=== PATIENT | female | born 1985 | race African-American/Black ===

== ENCOUNTER 2021-04-14 11:56 | Inpatient (IN) | payer OTHER, MEDICAID ==
[~2021-04-14] VITALS: Ht 167.6 cm; Wt 86.5 kg
[2021-04-14] MEDS ORDERED: IV NORMAL SALINE 1000ML BAG 1,000 ML IV ONE (12:15)
[2021-04-14 12:43] LABS: BASO # 0.1 x10^3/uL (0.0-0.2); BASO % 1 % (0-3); EOS # 0.1 x10^3/uL (0.0-0.7); EOS % 1 % (0-3); HEMATOCRIT 46.6 % (36.0-47.0); LYMPH # 1.9 x10^3/uL (1.0-4.8); LYMPH % 19 % (24-48); MEAN CORPUSCULAR HEMOGLOBIN 31 pg (25-35); MEAN CORPUSCULAR HGB CONC 34 g/dL (31-37); MEAN CORPUSCULAR VOLUME 91 fL (79-100); MONO # 0.5 x10^3/uL (0.0-1.1); MONO % 6 % (0-9); NEUT # 7.3 x10^3/uL (1.8-7.7); NEUT % 73 % (31-73); PLATELET COUNT 411 x10^3/uL (140-400); RED BLOOD COUNT 5.13 x10^6/uL (3.50-5.40); RED CELL DISTRIBUTION WIDTH 13.7 % (11.5-14.5); WHITE BLOOD COUNT 9.9 x10^3/uL (4.0-11.0)
[2021-04-14 12:46] LABS: CALCIUM 9.7 mg/dL (8.5-10.1); CREATININE 0.9 mg/dL (0.6-1.0); GFR 87.3; POTASSIUM 4.4 mmol/L (3.5-5.1)
[2021-04-14 12:52] LABS: ALBUMIN 4.6 g/dL (3.4-5.0); ALBUMIN/GLOBULIN RATIO 1.2 (1.0-1.7); MAGNESIUM 2.1 mg/dL (1.8-2.4); TOTAL BILIRUBIN 0.4 mg/dL (0.2-1.0); TOTAL PROTEIN 8.6 g/dL (6.4-8.2)
--- NOTE | 2021-04-14 13:07 | PHYS DOC ---
Past Medical History Past Medical History: Anxiety Past Surgical History: No Surgical History Smoking Status: Never Smoker Alcohol Use: Occasionally Drug Use: None General Adult EDM: Chief Complaint: Palpitations HPI: HPI: Patient is a 35 year old female presenting with palpitations. Patient was at home this morning when she started to feel lightheaded and dizzy and felt like her chest was "jumping". Her mom checked her blood pressure which was normal. She describes chest tightness in the middle and some pain in her right shoulder. Denies SOB. Denies headache. She reports some nausea and vomiting x 2 this morning, which she says is due to drinking alcohol last night, but currently does not feel nauseated. Denies known exposure to COVID-19. Denies fever or chills. Denies . Review of Systems: Review of Systems: Constitutional: Denies fever or chills Eyes: Denies redness or eye pain HENT: Denies nasal congestion or sore throat Respiratory: Denies cough or shortness of breath Cardiovascular: Reports chest pressure and palpitations GI: Denies abdominal pain. Reports nausea and vomiting x 2 : Denies dysuria or hematuria Musculoskeletal: Denies back pain or joint pain Integument: Denies rash or skin lesions Neurologic: Denies headache, focal weakness or sensory changes Complete systems were reviewed and found to be within normal limits, except as documented in this note. Heart Score: C/O Chest Pain: Yes HEART Score for Chest Pain: HEART Score for Chest Pain Response (Comments) Value History Slighlty/Non-Suspicious 0 ECG Nonspecific Repolarizatio (A Fib with RVR) 1 Age < 45 0 Risk Factors No Risk Factors 0 Troponin < Normal Limit 0 Total 1 Risk Factors: Risk Factors: DM, Current or recent (<one month) smoker, HTN, HLP, family history of CAD, obesity. Risk Scores: Score 0 - 3: 2.5% MACE over next 6 weeks - Discharge Home Score 4 - 6: 20.3% MACE over next 6 weeks - Admit for Clinical Observation Score 7 - 10: 72.7% MACE over next 6 weeks - Early Invasive Strategies Current Medications: Current Medications Medications (Trade) Dose Ordered Sig/Gorge Start Time Stop Time Status Last Admin Dose Admin Sodium Chloride 1,000 ml @ 1,000 mls/hr 1X ONCE 04/14/21 12:15 04/14/21 13:14 Allergies: Allergies: Allergies Coded Allergies Type Severity Reaction Last Updated Verified No Known Drug Allergies 04/14/21 No Physical Exam: PE: Constitutional: Well developed, no acute distress, non-toxic appearance HENT: Normocephalic, atraumatic Eyes: EOMI, conjunctiva normal, no discharge Neck: Normal range of motion, no tenderness, supple Lungs & Thorax: No respiratory distress, equal chest rise and fall. Lungs clear to auscultation bilaterally Cardiovascular: Tachycardic, no murmurs, rubs or gallops. Radial pulses +2 bilaterally. Abdomen: Soft, no tenderness Skin: Warm, dry, no erythema, no rash Extremities: No tenderness, ROM intact, no edema Neurologic: Alert and oriented X 3, normal motor function, normal sensory function, no focal deficits noted Psychologic: Affect normal, judgment normal EKG: EKG: Obtained at 1208 A Fib with RVR at 150 bpm. Artifact in V2. No ST elevation. QRS 68 ms QT 214 ms QTc 340 ms Obtained at 1323 A Fib with RVR at [address] elevation. QRS 92 ms QT 314 ms QTc 491 ms Radiology/Procedures: Radiology/Procedures: [] Course & Med Decision Making: Course & Med Decision Making Patient is a 35 year old female presenting to the ED with palpitations. Patient felt lightheaded and dizzy this morning. She describes chest tightness, palpitations and some pain in her right shoulder. Denies SOB. Denies headache. Patient doesn't recall having a similar episode before. ECG at 1208 showed A Fib with RVR at 150 bpm. Troponin I was negative. Patient was given option of being admitted to cardiology for observation and possible cardioversion tomorrow or performing synchronized cardioversion in the ED. Patient elected to do synchronized cardioversion in the ED. Before consent was obtained, patient's rhythm went into V Tach up to 250s. She converted back to A Fib with RVR after about 10-15 seconds without intervention. Repeat ECG at 1323 showed A Fib with RVR at [address] Stewart in cardiology consulted. Per his recommendation, medical treatment initiated with Cardiazem and Heparin, with plan to possibly perform cardiover cynthia tomorrow. Patient stable for admission to the hospital for further treatment and evaluation with Dr. Meraz, who is covering for group with Dr. De La Garza (PCP). Discussed findings and plan with patient and family, who acknowledge understanding and agreement. Ailyn Disclaimer: Dragon Disclaimer: This electronic medical record was generated, in whole or in part, using a voice recognition dictation system. Departure Departure Impression: Primary Impression: Atrial fibrillation with rapid ventricular response Additional Impression: V-tach Disposition: 09 ADMITTED INPATIENT Admitting Physician: Milo Meraz Condition: GUARDED Referrals: ABIGAIL LOPEZ MD (PCP) Critical Care Time Critical care time was 30 minutes which includes time at bedside, spent in discussion of patient's care with specialists and/or family members, with interpretation of laboratory and/or radiological studies and is exclusive of procedures. ALYSHA ZHAO DO Apr 14, 2021 13:07
[2021-04-14] MEDS ORDERED: fentaNYL PF VIAL 100 MCG/2 ML VIAL IVP ONE (13:15)
[2021-04-14 13:16] LABS: BILIRUBIN,URINE NEGATIVE (NEG); CLARITY,URINE CLEAR; COLOR,URINE YELLOW; NITRITE,URINE NEGATIVE (NEG); PH,URINE 7.5 (<5.0-8.0); PROTEIN,URINE 100 mg/dL (NEG-TRACE); UROBILINOGEN,URINE 0.2 mg/dL (0.2 mg/dL)
[2021-04-14] MEDS ORDERED: HEPARIN for IV BOLUS 10,000 UNIT/10 ML VIAL. IV ONE (13:30)
[2021-04-14] MEDS ORDERED: HEPARIN for IV BOLUS 10,000 UNIT/10 ML VIAL. IV PRN (13:30)
[2021-04-14] MEDS ORDERED: HEPARIN 25,000UTS/250ML PREMIX 250 ML IV PRN (13:30)
[2021-04-14 14:03] LABS: AMORPHOUS SEDIMENT,UR PRESENT /HPF; BACTERIA,URINE FEW /HPF (0-FEW); RBC,URINE OCC /HPF (0-2); WBC,URINE OCC /HPF (0-4)
[2021-04-14] MEDS ORDERED: ONDANSETRON PF 4 MG/2 ML VIAL. IV PRN (14:30)
[2021-04-14 14:39] LABS: PROTHROMBIN TIME PATIENT 13.2 SEC (11.7-14.0)
[2021-04-14 14:45] LABS: FREE T4 1.13 ng/dL (0.76-1.46)
[2021-04-14 16:05] LABS: BARBITURATES NEG (NEG); BENZODIAZEPINES NEG (NEG); CANNABINOIDS NEG (NEG); COCAINE NEG (NEG); METHADONE NEG (NEG); OPIATES NEG (NEG); PHENCYCLIDINE NEG (NEG)
[2021-04-14 16:09] LABS: AMPHETAMINE/METHAMPHETAMINE NEG (NEG)
[2021-04-14 19:20] VITALS: BP 134/78
[2021-04-14 20:26] VITALS: BP 128/78
[2021-04-14 21:26] VITALS: BP 124/78
--- NOTE | 2021-04-14 22:11 | EKG ---
[facility] [address] [place] [address] Test Date: 2021-04-14 Test Time: 13:23:10 Pat Name: TASHA DOMINGUEZ Department: Room: Gender: F Care Center Manager: : 1985 Requested By: ALYSHA ZHAO Order Number: [id number] Reading MD: Measurements Intervals [place] Rate: 143 P: UT: QRS: 68 QRSD: 92 T: -94 QT: 314 QTc: 491 Interpretive Statements IRREGULAR RHYTHM, NO P-WAVE FOUND ST & T ABNORMALITY, CONSIDER INFERIOR ISCHEMIA OR LEFT VENTRICULAR STRAIN ABNORMAL ECG RI6.01 No previous ECG available for comparison
--- NOTE | 2021-04-14 22:20 | EKG ---
[facility] [address] [place] [address] Test Date: 2021-04-14 Test Time: 12:08:31 Pat Name: TASHA DOMINGUEZ Department: Room: Gender: F Babbitter: : 1985 Requested By: ALYSHA ZHAO Order Number: [id number] Reading MD: Measurements Intervals [place] Rate: 150 P: 90 OR: 86 QRS: 60 QRSD: 68 T: -56 QT: 214 QTc: 340 Interpretive Statements SINUS TACHYCARDIA ATRIAL PREMATURE COMPLEX(ES) ST & T ABNORMALITY, CONSIDER INFERIOR ISCHEMIA OR LEFT VENTRICULAR STRAIN T ABNORMALITY IN ANTEROLATERAL LEADS ABNORMAL ECG RI6.02 No previous ECG available for comparison
[2021-04-14 22:44] VITALS: BP 96/72
[2021-04-14 23:15] VITALS: BP 96/72
[2021-04-14] MEDS ORDERED: FLUO20CA20 PO (23:26)
[2021-04-14] MEDS ORDERED: TEMAZEPAM 15 MG CAPSULE PO PRN (23:30)
[2021-04-14 23:44] VITALS: BP 104/73
[2021-04-14] MEDS: ACETAMINOPHEN 325 MG TABLET. PO PRN (23:48)
[2021-04-15] VITALS (9 sets, daily range): BP systolic 91–131; BP diastolic 56–78
[2021-04-15 05:22] LABS: HEMATOCRIT 42.8 % (36.0-47.0); HEMOGLOBIN 14.4 g/dL (12.0-15.5); RED BLOOD COUNT 4.7 x10^6/uL (3.50-5.40); RED CELL DISTRIBUTION WIDTH 13.6 % (11.5-14.5); WHITE BLOOD COUNT 9.7 x10^3/uL (4.0-11.0)
[2021-04-15] MEDS: ACETAMINOPHEN 325 MG TABLET. PO PRN (07:48)
--- NOTE | 2021-04-15 08:08 | PDOC ---
Provider Note Date of Service: DATE: 04/15/21 TIME: 08:07 Provider Note dictated- echo, po dilt, next, follow Justifications for Admission Other Justification YONAS KUMAR MD Apr 15, 2021 08:07
--- NOTE | 2021-04-15 10:47 | PDOC2 ---
RYLEY NAVARRETE GOLF PROFESSIONAL 04/15/21 1047: CARDIAC CONSULT DATE OF CONSULT Date of Consult DATE: 04/15/21 TIME: 10:42 REASON FOR CONSULT Reason for Consult: New onset AFIB with RVR, runs of VTACH REFERRING PHYSICIAN Referring Physician: Dr. Del Valle SOURCE Source: Chart review, Patient HISTORY OF PRESENT ILLNESS HISTORY OF PRESENT ILLNESS This is a 35 yo female who presented secondary to palpitations and dizziness. W as noted in Aflutter with RVR in ED, which prompted this consult. Patient reports she went out for and had a few drinks Thursday night. Woke up not feeling well on Thursday. Thought she was possibly "hung over" although she reports she didn't drink very much the night prior. Went into the kitchen and felt lightheaded/dizzy. Could feel her heart "jumping" in her chest. Went and laid down and symptoms improved. Got up later and symptoms returned so she came to the ED for further evaluation and treatment. Was noted in AFIB with RVR. While in ED, HR went up to 250 and there were concerns for possible VT. Outbound Sales Executive was notified and patient was place on Cardizem and heparin gtts. Patient reports having palpitations, feeling like her heart is racing, previously. Reports these episodes have been very brief and they resolved without intervention. Patient converted back to SR overnight. PAST MEDICAL HISTORY Cardiovascular: No pertinent hx Pulmonary: No pertinent hx GI: No pertinent hx Heme/Onc: No pertinent hx Hepatobiliary: No pertinent hx Psych: Anxiety Endocrine: Hypothyroidism PAST SURGICAL HISTORY Past Surgical History: No pertinent history FAMILY HISTORY Family History: Other (noncontributory to CV ) SOCIAL HISTORY Smoke: No ALCOHOL: occassional Drugs: None Lives: with Family CURRENT MEDICATIONS CURRENT MEDICATIONS Current Medications Medications (Trade) Dose Ordered Sig/Gorge Route PRN Reason Start Time Stop Time Status Last Admin Dose Admin Sodium Chloride 1,000 ml @ 1,000 mls/hr 1X ONCE IV 04/14/21 12:15 04/14/21 13:14 DC 04/14/21 12:32 Diltiazem HCl (Cardizem Iv Push) 20 mg 1X ONCE IVP 04/14/21 13:30 04/14/21 13:31 DC 04/14/21 13:56 Diltiazem HCl 125 mg/Sodium Chloride 125 ml @ 5 mls/hr 1X ONCE IV 04/14/21 13:30 04/15/21 08:10 DC 04/14/21 14:03 Heparin Sodium (Porcine) (Heparin Sodium) 4,000 unit 1X ONCE IV 04/14/21 13:30 04/14/21 13:31 DC 04/14/21 14:30 Heparin Sodium/ Dextrose 250 ml @ 0 mls/hr CONT PRN IV PER PROTOCOL 04/14/21 13:30 04/14/21 14:36 Diltiazem HCl 125 mg/Sodium Chloride 125 ml @ 5 mls/hr CONT PRN IV SEE I/O RECORD 04/14/21 22:00 04/15/21 08:10 DC 04/15/21 02:12 Acetaminophen (Tylenol) 650 mg PRN Q6HRS PRN PO MILD PAIN / TEMP > 100.3'F 04/14/21 23:30 04/15/21 07:48 Temazepam (Restoril) 30 mg PRN QHS PRN PO INSOMNIA 04/14/21 23:30 04/14/21 23:47 Diltiazem HCl (Cardizem 24hr Cd) 180 mg DAILY PO 04/15/21 09:00 04/15/21 10:15 ALLERGIES ALLERGIES: Coded Allergies: No Known Drug Allergies (Unverified , 04/14/21) ROS Review of System 14 point ROS conducted with pertinent positives noted above in hPI PHYSICAL EXAM General: Alert, Oriented X3, Cooperative, No acute distress HEENT: Atraumatic Lungs: Clear to auscultation Heart: Regular rate Abdomen: Soft, No tenderness Extremities: No edema, Normal pulses Skin: No significant lesion Neuro: Normal speech, Sensation intact Psych/Mental Status: Mental status NL, Mood NL MUSCULOSKELETAL: No deformity VITALS/I&O VITALS/I&O: Vital Signs Date Time Temp Pulse Resp B/P (MAP) Pulse Ox O2 Delivery O2 Flow Rate FiO2 04/15/21 10:15 65 100/67 04/15/21 08:00 Room Air 2.0 04/15/21 07:00 97.8 16 98 97.8 I & O 04/14/21 04/14/21 04/15/21 15:00 23:00 07:00 Intake Total 125 ml Output Total 300 ml 300 ml Balance -300 ml -175 ml LABS Lab: Laboratory Tests Test 04/14/21 12:17 04/14/21 12:36 04/14/21 12:48 04/14/21 14:10 White Blood Count 9.9 x10^3/uL (4.0-11.0) Red Blood Count 5.13 x10^6/uL (3.50-5.40) Hemoglobin 16.0 g/dL (12.0-15.5) H Hematocrit 46.6 % (36.0-47.0) Mean Corpuscular Volume 91 fL (79-100) Mean Corpuscular Hemoglobin 31 pg (25-35) Mean Corpuscular Hemoglobin Concent 34 g/dL (31-37) Red Cell Distribution Width 13.7 % (11.5-14.5) Platelet Count 411 x10^3/uL (140-400) H Neutrophils (%) (Auto) 73 % (31-73) Lymphocytes (%) (Auto) 19 % (24-48) L Monocytes (%) (Auto) 6 % (0-9) Eosinophils (%) (Auto) 1 % (0-3) Basophils (%) (Auto) 1 % (0-3) Neutrophils # (Auto) 7.3 x10^3/uL (1.8-7.7) Lymphocytes # (Auto) 1.9 x10^3/uL (1.0-4.8) Monocytes # (Auto) 0.5 x10^3/uL (0.0-1.1) Eosinophils # (Auto) 0.1 x10^3/uL (0.0-0.7) Basophils # (Auto) 0.1 x10^3/uL (0.0-0.2) Sodium Level 141 mmol/L (136-145) Potassium Level 4.4 mmol/L (3.5-5.1) Chloride Level 104 mmol/L (98-107) Carbon Dioxide Level 25 mmol/L (21-32) Anion Gap 12 (6-14) Blood Urea Nitrogen 9 mg/dL (7-20) Creatinine 0.9 mg/dL (0.6-1.0) Estimated GFR (Cockcroft-Gault) 87.3 BUN/Creatinine Ratio 10 (6-20) Glucose Level 110 mg/dL (70-99) H Calcium Level 9.7 mg/dL (8.5-10.1) Magnesium Level 2.1 mg/dL (1.8-2.4) Total Bilirubin 0.4 mg/dL (0.2-1.0) Aspartate Amino Transferase (AST) 28 U/L (15-37) Alanine Aminotransferase (ALT) 37 U/L (14-59) Alkaline Phosphatase 87 U/L (46-116) Creatine Kinase 436 U/L (26-192) H Creatine Kinase MB (Mass) 3.2 ng/mL (0.0-3.6) Creatine Kinase MB Relative Index 0.7 % (0-4) Troponin I Quantitative < 0.017 ng/mL (0.000-0.055) Total Protein 8.6 g/dL (6.4-8.2) H Albumin 4.6 g/dL (3.4-5.0) Albumin/Globulin Ratio 1.2 (1.0-1.7) Thyroid Stimulating Hormone (TSH) 3.894 uIU/mL (0.358-3.74) H Free Thyroxine 1.13 ng/dL (0.76-1.46) Free Triiodothyronine (T3) pg/mL 2.75 pg/mL (2.18-3.98) Urine Collection Type Unknown Urine Color Yellow Urine Clarity Clear Urine pH 7.5 (<5.0-8.0) Urine Specific [place] 1.010 (1.000-1.030) Urine Protein 100 mg/dL (NEG-TRACE) Urine Glucose (UA) Negative mg/dL (NEG) Urine Ketones (Stick) Negative mg/dL (NEG) Urine Blood Trace (NEG) Urine Nitrite Negative (NEG) Urine Bilirubin Negative (NEG) Urine Urobilinogen Dipstick 0.2 mg/dL (0.2 mg/dL) Urine Leukocyte Esterase Negative (NEG) Urine RBC Occ /HPF (0-2) Urine WBC Occ /HPF (0-4) Urine Squamous Epithelial Cells Many /LPF Urine Amorphous Sediment Present /HPF Urine Bacteria Few /HPF (0-FEW) Urine Mucus Slight /LPF Urine Opiates Screen Neg (NEG) Urine Methadone Screen Neg (NEG) Urine Barbiturates Neg (NEG) Urine Phencyclidine Screen Neg (NEG) Urine Amphetamine/Methamphetamine Neg (NEG) Urine Benzodiazepines Screen Neg (NEG) Urine Cocaine Screen Neg (NEG) Urine Cannabinoids Screen Neg (NEG) Urine Ethyl Alcohol Neg (NEG) POC Urine HCG, Qualitative Hcg negative (Negative) Prothrombin Time 13.2 SEC (11.7-14.0) Prothrombin Time INR 1.0 (0.8-1.1) Activated Partial Thromboplast Time 27 SEC (24-38) Test 04/14/21 17:02 04/14/21 20:30 04/15/21 03:55 Troponin I Quantitative 0.203 ng/mL (0.000-0.055) 0.159 ng/mL (0.000-0.055) Heparin Anti-Xa Act, Unfractionated 0.27 IU/mL (0.30-0.70) L 0.38 IU/mL (0.30-0.70) White Blood Count 9.7 x10^3/uL (4.0-11.0) Red Blood Count 4.70 x10^6/uL (3.50-5.40) Hemoglobin 14.4 g/dL (12.0-15.5) Hematocrit 42.8 % (36.0-47.0) Mean Corpuscular Volume 91 fL (79-100) Mean Corpuscular Hemoglobin 31 pg (25-35) Mean Corpuscular Hemoglobin Concent 34 g/dL (31-37) Red Cell Distribution Width 13.6 % (11.5-14.5) Platelet Count 379 x10^3/uL (140-400) Laboratory Tests 04/14/21 12:17 04/15/21 03:55 Laboratory Tests 04/14/21 12:17 ASSESSMENT/PLAN ASSESSMENT/PLAN 1. Palpitations, new onset AFIB/flutter with RVR; converted back to SR on Cardizem gtt. Tele from ED reviewed and shows SVT. NO VT noted 2. Elevated troponin; peak 0.2. Most probably type II, demand ischemia secondary to above. On heparin gtt 3. Hypothyroidism; TSH 3.8. Recommendations Will convert Cardizem to metoprolol for rate control as BP low end Titrate off Cardizem gtt Discontinue heparin gtt Start low-dose ASA therapy Echo to assess LV systolic function Plan outpatient event monitor and EP referral Will monitor overnight and plan for discharge tomorrow. RONNIE POTTS MD 04/15/211927: CARDIAC CONSULT ASSESSMENT/PLAN ASSESSMENT/PLAN The patient was seen and interviewed as well as examined at the bedside. The chart was reviewed. The case was discussed. Agree with the plan of care. RYLEY NAVARRETE APRN Apr 15, 2021 10:47 RONNIE POTTS MD Apr 15, 2021 19:28
--- NOTE | 2021-04-15 10:57 | HP ---
ADMIT DATE: 04/14/2021 CHIEF COMPLAINT: Rapid heartbeat. HISTORY OF PRESENT ILLNESS: A 35-year-old black female a normal healthy, takes no meds, came in with having fairly sudden onset of rapid heartbeat, shortness of breath and dizziness. She had no recent chest pain or other complaints. She was in atrial fibrillation with rapid ventricular response in the ER and required IV diltiazem for control. She is converted to sinus rhythm after about 6 hours on IV diltiazem and feels better now. She has never had previous cardiovascular evaluation. PAST MEDICAL HISTORY: No p.o. meds. No prior surgeries. Medical history per obtained note. No drug allergies. She has had one child. SOCIAL HISTORY: Nonsmoker, nondrinker. Single. We did not discuss ____. FAMILY HISTORY: Unremarkable. REVIEW OF SYSTEMS: No other specific complaints. She has an IUD in for control. OBJECTIVE: ____ NECK: No masses, nodes or bruits. LUNGS: Clear, without tachypnea. CARDIOVASCULAR: Regular rate. No irregular beat or murmur is heard, no rubs are heard. ABDOMEN: Soft, benign and nontender. EXTREMITIES: Good pedal and radial pulses. No joint or skin lesions or edema. NEUROLOGIC: Physiologic. No tremor. No focal findings. Mental status intact. ASSESSMENT: New onset of atrial fibrillation with rapid ventricular response, which appears to be idiopathic at this point. No evidence of thyroid disease, valvular disease, substance abuse, chronic obstructive pulmonary disease or other known causes. PLAN: We will check a D-dimer, which I do not believe has been done yet to assess for occult pulmonary embolism, echocardiogram and switch to p.o. diltiazem. Cardiovascular consult is pending as well for further evaluation. ALEKS/CHATO/IBRAHIMA DR: Hank TID: [id number]
--- NOTE | 2021-04-15 12:53 | NUR ---
SS following for discharge planning. SS reviewed pt chart and discussed with pt RN. Pt is from home and is currently on room air. Pt converted overnight. Cardiology following. Probable discharge to home tomorrow with outpatient automotive repair technician. SS will continue to follow for discharge planning.
--- NOTE | 2021-04-15 17:44 | CARD ---
MR#: [id number] Date of Study: 04/15/2021 Ordering Physician: YONAS KUMAR, Referring Physician: YONAS KUMAR, Tech: Rachelle Griffithsimmanueldmitriy [facility] APPROVED REPORT EXAM: Two-dimensional and M-mode echocardiogram with Doppler and color Doppler. Other Information Quality : GoodHR: 65bpm INDICATION Atrial Fibrillation RISK FACTORS Hypertension 2D DIMENSIONS RVDd3.3 (2.9-3.5cm)Left Atrium(2D)3.1 (1.6-4.0cm) IVSd1.0 (0.7-1.1cm)Aortic Root(2D)2.7 (2.0-3.7cm) LVDd4.5 (3.9-5.9cm)LVOT Diameter2.0 (1.8-2.4cm) PWd0.9 (0.7-1.1cm)LVDs2.9 (2.5-4.0cm) FS (%) 34.9 %SV58.5 ml LVEF(%)60.3 (>50%) Aortic Valve AoV Peak Isra.108.3cm/sAoV VTI28.4cm AO Peak GR.4.7mmHgLVOT VTI 16.61cm AO Mean GR.4mmHg Mitral Valve MV E Taejvxkk27.4cm/sMV DECEL GYLS381oh MV A Rrxruuju98.0cm/sE/A Ratio2.0 TDI Lateral E' P. V12.10cm/sMedial E' P. V8.88cm/s E/Lateral E'7.0E/Medial E'9.5 Tricuspid Valve TR P. Iwzmivph802vf/sRAP HVABQLHO0yoMn TR Peak Gr.56ktAuSRPI83uqTh Pulmonary Vein S1 Wqadkylk93.8cm/sS2 Txdwmsej49.47cm/s D2 Gjzmfmyq56.5cm/s LEFT VENTRICLE The left ventricle is normal size. There is normal left ventricular wall thickness. The left ventricu lar systolic function is normal and the ejection fraction is within normal range. The Ejection Fracti on is 50-55%. There is normal LV segmental wall motion. The left ventricular diastolic function and f illing is normal for age. RIGHT VENTRICLE The right ventricle is normal size. There is normal right ventricular wall thickness. The right ventr icular systolic function is normal. ATRIA The left atrium size is normal. The right atrium size is normal. The interatrial septum is intact wit h no evidence for an atrial septal defect or patent foramen ovale as noted on 2-D or Doppler imaging. AORTIC VALVE The aortic valve is normal in structure and function. Doppler and Color Flow revealed trace aortic re gurgitation. There is no significant aortic valvular stenosis. Calculated aortic valve maximum pressu re gradient of 8 mmHg and mean pressure gradient of 4 mmHg. MITRAL VALVE The mitral valve is normal in structure and function. There is no evidence of mitral valve prolapse. There is no mitral valve stenosis. Doppler and Color-flow revealed trace mitral regurgitation. TRICUSPID VALVE The tricuspid valve is normal in structure and function. Doppler and Color Flow revealed trace tricus pid regurgitation with an estimated PAP of 25 mmHg. There is no tricuspid valve stenosis. PULMONIC VALVE The pulmonic valve is not well visualized. Doppler and Color Flow revealed trace pulmonic valvular re gurgitation. GREAT VESSELS The aortic root is normal in size. The ascending aorta is normal in size. The IVC is normal in size a nd collapses >50% with inspiration. PERICARDIAL EFFUSION There is no evidence of significant pericardial effusion. Critical Notification Critical Value: No <Conclusion> The left ventricle is normal size. The left ventricular systolic function is normal and the ejection fraction is within normal range. The Ejection Fraction is 50-55%. There is normal LV segmental wall motion. Doppler and Color Flow revealed trace aortic regurgitation. There is no significant aortic valvular stenosis. Calculated aortic valve maximum pressure gradient of 8 mmHg and mean pressure gradient of 4 mmHg. Doppler and Color-flow revealed trace mitral regurgitation. Doppler and Color Flow revealed trace tricuspid regurgitation with an estimated PAP of 25 mmHg. Signed by : Leopoldo Marquez MD Electronically Approved : 04/15/2021 17:43:31
[2021-04-15] MEDS: ASPIRIN ENTERIC COATED 81 MG TABLET.DR. PO SCH (18:17)
[2021-04-15] MEDS: METOPROLOL TART IMMED RELEASE 25 MG TABLET. PO SCH (21:23)
[2021-04-16 02:55] VITALS: BP 105/58
[2021-04-16 07:00] VITALS: BP 110/80
--- NOTE | 2021-04-16 07:36 | PDOC ---
Provider Note Date of Service: DATE: 04/16/21 TIME: 07:34 Provider Note [id number] Justifications for Admission Other Justification YONAS KUMAR MD Apr 16, 2021 07:36
--- NOTE | 2021-04-16 08:41 | DS ---
DATE OF DISCHARGE: 04/16/2021 HOSPITAL SUMMARY: A 35-year-old black female with no previous cardiac history. Her only home medication is fluoxetine, came in with atrial fibrillation with rapid ventricular response. She required IV diltiazem and after about 6 or 8 hours with fairly rapid rate she converted to sinus rhythm and remained there. Troponin was normal on admission, went up to 0.2, it is, likely demand ischemia. TSH minimally elevated at 3.9 with T4 and free T3 both were normal and chemistry profile, CBC, magnesium levels were all within normal limits. Urine drug screen showed no drugs of abuse and urinalysis was clear. Echocardiogram showed an excellent ejection fraction of 55% with no sign of mitral valve disease or any structural abnormalities. She was converted from IV to oral diltiazem and after recovery in sinus rhythm and then switched to metoprolol because of mildly low blood pressure, but blood pressure remains in the 100 systolic range. She remains in sinus rhythm now. Likely this will be discharged later today after seen by Cardiology with discussion of home meds and referral to EP physician for further evaluation. We discussed the unlikely possibility that fluoxetine in a higher dose could be contributing, but medication will not change at this point. FINAL DIAGNOSIS: Atrial fibrillation with rapid ventricular response. OPERATIONS, PROCEDURES AND COMPLICATIONS: None. CONSULTATION: Dr. Stewart. DISPOSITION: Metoprolol tartrate 25 mg twice a day, low-dose aspirin along with home meds remain the same. Office followup with Dr. De La Garza in [address] weeks [address] Stewart's office to arrange EP referral for further evaluation. We will repeat the TSH in 6 months to follow up the subclinical hypothyroidism, but certainly is not contributing to this etiology. ALEKS/LYUBOV CHAVEZ: ALEKS/elisabet TID: [id number]
[2021-04-16] MEDS: METOPROLOL TART IMMED RELEASE 25 MG TABLET. PO SCH (08:54)
[2021-04-16] MEDS: ASPIRIN ENTERIC COATED 81 MG TABLET.DR. PO SCH (08:54)
[2021-04-16 11:00] VITALS: BP 117/72
--- NOTE | 2021-04-16 11:55 | PDOC ---
CARDIO Progress Notes Date and Time Date of Service 04/16/21 Time of Evaluation 1150 Subjective Subjective: No Chest Pain, No shortness of breath, No Palpitations Vitals Vitals Vital Signs Date Time Temp Pulse Resp B/P (MAP) Pulse Ox O2 Delivery O2 Flow Rate FiO2 04/16/21 11:00 98.4 69 16 117/72 (87) 100 Room Air 98.4 04/16/21 08:00 2.0 Weight Weight [ ] Input and Output Intake and Output Intake and Output 04/16/21 07:00 Intake Total 1040 ml Output Total 500 ml Balance 540 ml Intake Oral 1040 ml Output Urine Total 500 ml # Voids 2 Physical Exam HEENT: Neck Supple W Full Motion Chest: Symmetric LUNGS: Clear to Auscultation Heart: RRR Abdomen: Soft N/T Extremities: No Edema Neurology: alert, oriented, follow commands Assessment Assessment 1. Palpitations, new onset AFIB/flutter with RVR; converted back to SR on Cardizem gtt. Tele from ED reviewed and shows SVT. NO VT noted. Maintaining SR overnight. 2. Elevated troponin; peak 0.2. Most probably type II, demand ischemia secondary to above. Echo with preserved LV systolic function 3. Hypothyroidism; TSH 3.8. Recommendations Metoprolol for rate control Low-dose ASA therapy Echo to assess LV systolic function Outpatient event monitor and EP referral arranged Follow up in our office with Dr. Rai as scheduled Justicifation of Admission Dx: Justifications for Admission: Justification of Admission Dx: Yes Comments: AFIB with RVR RYLEY NAVARRETE APRN Apr 16, 2021 11:55
[2021-04-16] MEDS ORDERED: ASPI-886 PO (12:00)
[2021-04-16] MEDS ORDERED: METO25TA4 PO (12:00)
--- NOTE | 2021-04-16 13:06 | NUR ---
SS following up with discharge planning. SS reviewed pt chart and discussed with pt RN. Pt is currently on room air. Discharge order on the chart for home with self care.
--- NOTE | 2021-04-16 13:23 | NUR ---
Discharged patient to home. Discharge instructions given. piv and heart monitor removed. Escorted patient off unit per wheelchair into a private vehicle.
== END 2021-04-16 13:30 | disposition home or self-care (01) | DRG 309 ==
LOC: ER 11:56 → ED HOLD 14:20 → 2 NORTH 20:17
PROVIDERS: ADMIT Family Medicine; ATTEND Family Medicine
DX: I48.92 Unspecified atrial flutter (principal); I24.8 Other forms of acute ischemic heart disease; I47.1 Supraventricular tachycardia; I47.2 Ventricular tachycardia; R94.6 Abnormal results of thyroid function studies; E03.9 Hypothyroidism, unspecified; I48.91 Unspecified atrial fibrillation; F41.9 Anxiety disorder, unspecified; F19.10 Other psychoactive substance abuse, uncomplicated; J44.9 Chronic obstructive pulmonary disease, unspecified; R03.1 Nonspecific low blood-pressure reading
CPT/HCPCS: 36415; 80053; 80307; 81001; 81025; 82553; 83735; 84439; 84443; 84481; 84484; 85025; 85027; 85520; 85610; 85730; 93005; 93306; 96361; 96365; 96366; 96368; 96376; J1644; J3490; J7030; 99291-25; G0378